=== PATIENT | male | born 1960 | race Caucasian/White ===

== ENCOUNTER 2016-11-02 15:08 | Emergency (ER) | payer MEDICAID ==
[2016-11-02] MEDS ORDERED: KETOROLAC 60 MG/2 ML VIAL IM ONE (16:03)
== END 2016-11-02 17:17 | disposition home or self-care (01) ==
LOC: ER 15:08
DX: S83.91XA Sprain of unspecified site of right knee, initial encounter (principal); W01.0XXA Fall on same level from slipping, tripping and stumbling without subsequent striking against object, initial encounter; Y92.512 Supermarket, store or market as the place of occurrence of the external cause
CPT/HCPCS: 96372